=== PATIENT | female | born 2000 | race Caucasian/White ===

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

== ENCOUNTER 2021-02-16 18:40 | Inpatient (IN) | payer MEDICAID, SELFPAY ==
[2021-02-16 18:55] VITALS: BP 144/83; PULSE 90; RESP 16; TEMP 36.2; O2SAT 100; BMI 47.9
[2021-02-16 19:48] LABS: Basophils % 0.1 %; Eosinophils # 0.1 10^3/uL (0.0-0.8); Eosinophils % 1.1 %; Hematocrit 44.4 % (37.0-47.0); Lymphocytes # 2.4 10^3/uL (1.5-6.5); Lymphocytes % 28.8 %; Mean Corpuscular HGB Conc 31.5 g/dL (30.0-36.0); Mean Corpuscular Hemoglobin 26.9 pg (28.0-34.0); Mean Corpuscular Volume 85.4 fl (81-99); Mean Platelet Volume 10.3 fL (7.4-10.4); Monocytes # 0.4 10^3/uL (0.2-0.9); Monocytes % 5.3 %; Neutrophils # 5.34 10^3/uL (1.8-8.0); Neutrophils % 64.6 %; Nucleated Red Blood Cells % 0 %; Platelet Count 359 10^3/cmm (130-400); Red Cell Distribution Width 13.4 % (12.1-15.1); White Blood Count 8.3 10^3/uL (4.5-13.0)
[2021-02-16 20:03] LABS: Amphetamines Screen Urine Negative (Negative); Barbiturates Screen Urine Negative (Negative); Benzodiazepines Screen Urine Negative (Negative); Cocaine Screen Urine Negative (Negative); Opiate Screen Urine Negative (Negative); PCP Screen Urine Negative (Negative); THC Screen Urine Positive (Negative)
--- NOTE | 2021-02-16 20:03 | W.ED.GENADLT ---
HPI - General Adult General: Chief complaint: Psychiatric Symptoms Stated complaint: SI Time Seen by Provider: 02/16/21 19:15 History of Present Illness: HPI narrative: HPI: [20]yo patient w/ hx of depression BIBA for suicidal ideation per mom. On arrival, the patient is AAOx3 and cooperative with my evaluation. No focal complaints of chest pain, shortness of breath, palpitations, N/V, focal GI/ complaints. +SI. No complaints of hallucinations. Onset: chronic Duration: ongoing Location: home Severity: severe Review of Systems Narrative: Constitutional: No fever, no chills. HEENT: No vision changes CV: No chest pain, no palpitations PULM: No productive cough, no dyspnea. GI: No abdominal pain, no N/V/D. : No dysuria MSKEL: No muscle pain SKIN: No new rashes, no lesions. NEURO: No headache, no focal weakness. HEME: No visible bruises PSYCH: Normal mood PFSH ED PFSH: Medical History (Updated 02/16/21 @ 19:17 by Lilly Robles MD) Type 2 diabetes mellitus without complication Social History Smoking and tobacco status: never smoked Female Reproductive History: Date of last menstrual period: 02/16/21 Physical Exam Narrative: EXAM NARRATIVE: Head: Atraumatic Eyes: PERRL, conjunctiva without injection, eyes tracking ENT: Mucous membrane moist NECK: Supple without lymphadenopathy LUNGS: LCTAB CV: RRR ABDOMEN: Soft, nontender EXTREMITY: Normal ROM SKIN: No rash or erythema NEURO: Awake and alert. No focal weakness PSYCH: Cooperative mood and affect. Course Vital Signs: Vital signs: Vital Signs Temperature 97.1 F L 02/16/21 18:55 Pulse Rate 90 02/16/21 18:55 Respiratory Rate 16 02/16/21 18:55 Blood Pressure 144/83 02/16/21 18:55 Pulse Oximetry 100 02/16/21 18:55 MDM - General Adult MDM Narrative: Medical decision making narrative: [20]yo patient w/ hx of depression presenting for SI. HDS, exam within normal limit Thoughts are linear and organized, and the patient has no AH/VH, or HI. Clinically the patient displays no overt toxidrome; they are well appearing, with low suspicion for toxic ingestion given history and exam. Symptoms unlikely 2/2 anemia, hypothyroidism, infection, or ICH. Workup: CBC, CMP, Lipase, salicylate/tylenol, UDS Lab findings: wnl [8:30pm] On reassessment, labs and workup wnl. Patient is hemodynamically stable with no acute medical complaints. Case discussed with psychiatric provider Dr. Desouza at [facility] psych inpatient with recommendation for admission Disposition: Psych Lab Data: Labs: Lab Results 02/16/21 02/16/21 02/16/21 19:39 19:40 19:40 WBC 8.3 10^3/uL 10^3/ uL (4.5-13.0) RBC 5.20 10^6/uL 10^6 /uL (4.1-5.3) Hgb 14.0 g/dL g/dL (11.5-15.3) Hct 44.4 % % (37.0-47.0) MCV 85.4 fl fl (81-99) MCH 26.9 pg L pg (28.0-34.0) MCHC 31.5 g/dL g/dL (30.0-36.0) RDW 13.4 % % (12.1-15.1) Plt Count 359 10^3/cmm 10^3 /cmm (130-400) MPV 10.3 fL fL (7.4-10.4) Neut % (Auto) 64.6 % % Lymph % (Auto) 28.8 % % [place] % (Auto) 5.3 % % Eos % (Auto) 1.1 % % Baso % (Auto) 0.1 % % Neut # (Auto) 5.34 10^3/uL 10^3 /uL (1.8-8.0) Lymph # (Auto) 2.4 10^3/uL 10^3/ uL (1.5-6.5) [place] # (Auto) 0.4 10^3/uL 10^3/ uL (0.2-0.9) Eos # (Auto) 0.1 10^3/uL 10^3/ uL (0.0-0.8) Baso # (Auto) 0.0 10^3/uL 10^3/ uL (0.0-0.1) Nucleated RBC % (a uto) 0 % % Nucleated RBCs # 0.0 /100WBC /100W BC Sodium 137 mmol/L mmol/L (136-145) Potassium 3.9 mmol/L mmol/L (3.5-5.1) Chloride 101 mmol/L mmol/L (98-107) Carbon Dioxide 20 mmol/L L mmol/ L (22-29) Anion Gap 19.9 H (5-19) BUN 8 mg/dL mg/dL (6-20) Creatinine 0.6 mg/dL mg/dL (0.5-0.9) GFR Calculation 127.5 mL/min mL/m in (90-130) Glucose 177 mg/dL H mg/dL (65-115) Calculated Osmolal ity 287 mOsm/kg mOsm/ kg (285-295) Calcium 9.0 mg/dL mg/dL (8.5-10.5) Ser , Jessica i-Qnt 0.50 mIU/mL mIU/m L Salicylates < 0.3 mg/dL L mg/ dL (3-10) Urine Opiates Scre en Negative ng/mL ng /mL (Negative) Acetaminophen < 5.0 ug/mL L ug/ mL (10-30) Ur Barbiturates Sc reen Negative ng/mL ng /mL (Negative) Ur Phencyclidine S crn Negative ng/mL ng /mL (Negative) Ur Amphetamines Sc reen Negative ng/mL ng /mL (Negative) U Benzodiazepines Scrn Negative ng/mL ng /mL (Negative) Urine Cocaine Scre en Negative ng/mL ng /mL (Negative) U Marijuana (THC) Screen Positive ng/mL H ng/mL (Negative) Discharge Plan Discharge Patient Disposition: Admitted As Inpatient Clinical Impression: Depression Condition: Stable Discharge Diet: Advance as tolerated Discharge Activity: Resume usual activity Coding Level of Care Code ED Cnc Supervisor for Fatou Gant
[2021-02-16 20:51] LABS: Anion Gap 19.9 (5-19); Blood Urea Nitrogen 8 mg/dL (6-20); Carbon Dioxide 20 mmol/L (22-29); Chloride 101 mmol/L (98-107); Glomerular Filtration Rate 127.5 mL/min (90-130); Glucose 177 mg/dL (65-115); Osmolality Calculated 287 mOsm/kg (285-295); Potassium 3.9 mmol/L (3.5-5.1); Sodium 137 mmol/L (136-145)
[2021-02-16 20:58] LABS: Acetaminophen < 5.0 ug/mL (10-30); Salicylate < 0.3 mg/dL (3-10)
[2021-02-16 22:36] VITALS: BP 144/78; PULSE 82; RESP 18; TEMP 36.7; O2SAT 98
[2021-02-17 06:00] VITALS: BP 126/81; PULSE 70; RESP 15; O2SAT 96
--- NOTE | 2021-02-17 06:28 | P.NPUHP_ITS ---
Providers/Chief Complaint Admitting Physician: Phong Desouza MD Primary Care Provider: Jose Alberto Mishra Chief Complaint: SI HPI NPU History of Present Illness Rhonda Davis is a 20 year old female admitted through the emergency department with the following report: Chief complaint: Psychiatric Symptoms Stated complaint: SI Time Seen by Provider: 02/16/21 19:15 History of Present Illness: HPI narrative: HPI: [20]yo patient w/ hx of depression BIBA for suicidal ideation per mom. On arrival, the patient is AAOx3 and cooperative with my evaluation. No focal complaints of chest pain, shortness of breath, palpitations, N/V, focal GI/ complaints. +SI. No complaints of hallucinations. Onset: chronic Duration: ongoing Location: home Severity: severe She was admitted to the neuropsychiatry unit for definitive treatment of these issues. She said that she has always had some anxiety, low self-esteem and depression. She is always been self-conscious. She says that she does not care what people think but she does not want to appear to be different than others. She has never had treatment. She has been working at [employer] since he was 16. 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 She was doing well with that until her grandmother and her brother both in the same 3-day. She had difficulty dealing with that and demoted herself. She has worked in a variety of positions, wherever they need her since that time. Her depression is gradually increased so that she has been having thoughts of wanting to kill herself for the last 2 weeks. She has a full spectrum of symptoms of depression. She has low mood, low energy, low self-esteem, low motivation, poor concentration and poor sleep. She has always needed to take something to help her sleep. She takes 1 or 2 Benadryl along with 5 or 10 mg of melatonin and generally smokes marijuana at bedtime. If she does not do that then she takes 1 or 2 hours to fall asleep. She took trazodone 50 mg last night but it did not do much for her sleep. She agreed to increase to 100 mg. She has many symptoms of anxiety. She said that she is always nervous. If she put something down it has to be lined up right. Her close have to be folded and hung up a certain way and color-coordinated. If she says a word she spells in her head. She says that her mother has bipolar disorder and depression. She 3 siblings that she does not think have depression or anxiety. She has never known much about her father. The doctor in the emergency room was thinking about releasing her but mother said that she was very concerned about her and did not think it was safe to send her home. The patient is insisting on leaving today. The mother is going to come and fill out an affidavit. Meds NPU Home Medications Medication Instructions Recorded Confirmed Last Taken Type No Known Home Medications 02/17/21 02/17/21 Unknown History Allergies Allergy/AdvReac Type Severity Reaction Status Date / Time Pertussis Vaccines Allergy unknown Verified 08/22/19 14:15 PFSH NPU PFSH: Medical History (Updated 02/17/21 @ 12:13 by Phong Desouza MD) Type 2 diabetes mellitus without complication Social History Smoking and tobacco status: never smoked Mental Status Exam MSE Comments: This is an obese 20-year-old female of about the stated age in no acute distress. She is dressed in hospital scrubs and was found in bed disheveled. psychomotor activity mildly decreased. Speech is at a regular rate and rhythm, normal volume, good articulation, not pressured. Alert, oriented X3 Attention and concentration appears to be intact. Memory is intact Mood is depressed. Affect is tearful especially when told that I thought that she should stay because she is not any better. Thought process is logical and goal-directed. Thought content: Denies auditory and visual hallucinations. No delusions or paranoia are noted. No current suicidal ideation, and no homicidal ideation. Fund of knowledge appears to be average. Insight and judgment appear to be fair. Impulse control is fair. Vitals/I&O/Wt Last Vital Signs Temp 98.1 F 02/16/21 22:36 Pulse 70 02/17/21 06:00 Resp 15 02/17/21 06:00 BP 126/81 02/17/21 06:00 Pulse Ox 96 02/17/21 06:00 Weight last 48 hrs Weight 142.882 kg Data NPU : 02/16/21 19:40 02/16/21 19:40 A&P Assessment and plan (1) Major depressive disorder, severe: Status: Acute (2) Type 2 diabetes mellitus without complication: Status: Acute (3) Anxiety disorder: Status: Acute Additional A&P Information This is a 20-year old single female who reports some lifelong anxiety and depression but no prior treatment. She has been significantly worse for the last 6 months and has had suicidal ideations for the last 2 weeks. Plan: 1. We will start Prozac 20 mg and trazodone at bedtime. 2. Continue every 15 minute checks for safety. 3. Encourage individual, group and milieu therapies. 4. Encourage sober living treatment after discharge at the highest level of care to which she is willing to commit. 5. We will monitor for safety for herself in the community prior to discharge. Involuntary Hold Information 96 Hour Hold: 96 Hour Involuntary Admission: No Attestations NPU Medical Necessity Statement*: Inpatient hospitalization is medically necessary and the clinically appropriate intervention at this time. We will initiate medications and make changes as indicated. She will be in the hospital for over 2 midnights. Likely length of stay 4-6 days Coding Level of Care Code Acute Link Knitting Machine Operator for Fatou Gant Diagnoses Major depressive disorder, severe F32.2 Type 2 diabetes mellitus without complication E11.9 Anxiety disorder F41.9
[2021-02-17 07:01] LABS: Glucose Point of Care 127 mg/dL (70-110)
--- NOTE | 2021-02-17 09:38 | PC.OT ---
OT EVALUATION ATTEMPTED; PATIENT WAS VISITING WITH DOCTOR AT FIRST ATTEMPT AND CRYING WHILE ON THE PHONE AT THE SECOND ATTEMPT.
[2021-02-17] MEDS: hyDROXYzine 25 mg Capsule 50 MG PO (10:11)
[2021-02-17] MEDS: nicotine 21 mg Patch 1 PATCH TRANSDERMA (10:11)
[2021-02-17 11:24] LABS: Glucose Point of Care 204 mg/dL (70-110)
--- NOTE | 2021-02-17 13:19 | NPU.GN ---
[facility] Group Topic:Depression Bingo General Mood of Group Rhonda did not attend group this morning. Brittany slept most of the day.
[2021-02-17] MEDS: fluoxetine 20 mg Capsule PO (13:23)
[2021-02-17 14:00] VITALS: BP 125/75; PULSE 79; RESP 16; TEMP 36.8; O2SAT 99
[2021-02-17 16:53] LABS: Glucose Point of Care 142 mg/dL (70-110)
[2021-02-17] MEDS: trazodone 100 mg Tablet PO (21:17)
[2021-02-17 21:39] LABS: Glucose Point of Care 150 mg/dL (70-110)
[2021-02-17 22:00] VITALS: RESP 16
[2021-02-18 06:00] VITALS: BP 130/82; PULSE 71; RESP 16; O2SAT 97
[2021-02-18 07:01] LABS: Glucose Point of Care 139 mg/dL (70-110)
[2021-02-18] MEDS: fluoxetine 20 mg Capsule PO (09:15)
[2021-02-18 11:28] LABS: Glucose Point of Care 215 mg/dL (70-110)
--- NOTE | 2021-02-18 13:09 | W.PM.NPUPNS ---
Subjective NPU Subjective: Interval history: He was found in bed after lunch. She says that she is doing better. She had a good visit with her mother yesterday. She says that she has had a lot of time to think and that has been helpful. She is thinking about getting a different job. 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 She was reminded that Prozac probably needs to get up to 60 or 80 mg before it will be helpful for her anxiety. She slept better last night with the trazodone 100 mg. She was a little groggy this morning. He was told that if she only needed one half when she got home that would be fine. Combining with melatonin might help. She should always take as little as possible of sleeping medications but still get a good night sleep. The importance of ongoing outpatient treatment was again emphasized. Mental Status Exam MSE Comments: This is an obese 20-year-old female of about the stated age in no acute distress. She is dressed in hospital scrubs and was found in bed disheveled. psychomotor activity normal. Speech is at a regular rate and rhythm, normal volume, good articulation, not pressured. Alert, oriented X3 Attention and concentration appears to be intact. Memory is intact Mood is depressed. Affect is mildly dysphoric. Significantly better than yesterday.. Thought process is logical and goal-directed. Thought content: Denies auditory and visual hallucinations. No delusions or paranoia are noted. No current suicidal ideation, and no homicidal ideation. Fund of knowledge appears to be average. Insight and judgment appear to be fair. Impulse control is fair. Cognition: Level of Consciousness: Awake, Alert and Appropriate Patient Cognition Impaired: No Ability to Follow Directions: Good Patient Orientation (long list): Person, Place and Time Comprehension Ability: No Impairment Hallucination Type: None Delusion Description: Not Present Thought Process: Appropriate Affect: Affect Description: Depressed and Sad Behavior: Patient Behavior: Withdrawn Speech Pattern: Clear Vitals/I&O/Wt Last Vital Signs Temp 98.2 F 02/17/21 14:00 Pulse 71 02/18/21 06:00 Resp 16 02/18/21 06:00 BP 130/82 02/18/21 06:00 Pulse Ox 97 02/18/21 06:00 Weight last 48 hrs Weight 142.882 kg Data NPU : 02/16/21 19:40 02/16/21 19:40 A&P Assessment and plan (1) Major depressive disorder, severe: Status: Acute (2) Type 2 diabetes mellitus without complication: Status: Acute (3) Anxiety disorder: Status: Acute Additional A&P Information This is a 20-year old single female who reports some lifelong anxiety and depression but no prior treatment. She has been significantly worse for the last 6 months and has had suicidal ideations for the last 2 weeks. Plan: 1. We will start Prozac 20 mg and trazodone 100 mg at bedtime. 2. Continue every 15 minute checks for safety. 3. Encourage individual, group and milieu therapies. 4. Encourage sober living treatment after discharge at the highest level of care to which she is willing to commit. 5. We will monitor for safety for herself in the community prior to discharge. Involuntary Hold Information 96 Hour Hold: 96 Hour Involuntary Admission: No Attestations NPU Medical Necessity Statement*: Inpatient hospitalization is medically necessary and the clinically appropriate intervention at this time. We will initiate medications and make changes as indicated. Coding Level of Care Code Acute Refrigerator Assembler for Fatou Gant Diagnoses Major depressive disorder, severe F32.2 Type 2 diabetes mellitus without complication E11.9 Anxiety disorder F41.9
[2021-02-18] MEDS: nicotine 2 mg Gum BUCCAL (13:11)
--- NOTE | 2021-02-18 13:18 | NPU.GN ---
[facility] Group Topic:Group Topic:Whine Barrel Activity General Mood of Group: Rhonda did attend group this morning. She participated but was a bit timid. This data analyst report writer aided client in completing the [facility] new client packet for services.
--- NOTE | 2021-02-18 13:20 | PC.SOCIAL ---
This commercial underwriter aided this client to complete the [facility] New Patient packet today for services .
[2021-02-18 13:57] VITALS: BP 142/82; PULSE 77; RESP 16; TEMP 36.6; O2SAT 98
[2021-02-18 16:15] LABS: Glucose Point of Care 146 mg/dL (70-110)
[2021-02-18] MEDS: trazodone 100 mg Tablet PO (20:53)
--- NOTE | 2021-02-18 21:00 | PC.NURSE ---
Patient blood sugar 150. Per sliding scale pt is to have 2 Units Lispro. Medication drawn up and taken to pt to administer. Pt replied, I don't take insulin, I only take Metformin. This Nurse explained insulin and sliding scale to patient. Patient chose to decline the Insulin at this time.
[2021-02-18 21:31] LABS: Glucose Point of Care 150 mg/dL (70-110)
[2021-02-18 22:00] VITALS: RESP 16
[2021-02-19 06:00] VITALS: RESP 16
[2021-02-19 07:34] LABS: Glucose Point of Care 131 mg/dL (70-110)
[2021-02-19] MEDS: fluoxetine 20 mg Capsule PO (09:02)
[2021-02-19 11:24] LABS: Glucose Point of Care 181 mg/dL (70-110)
[2021-02-19] MEDS: nicotine 21 mg Patch 1 PATCH TRANSDERMA (11:52)
[2021-02-19 14:00] VITALS: BP 164/92; PULSE 90; RESP 17; TEMP 36.9; O2SAT 98
[2021-02-19 16:36] LABS: Glucose Point of Care 150 mg/dL (70-110)
--- NOTE | 2021-02-19 16:41 | P.NPUPN_ITS ---
Subjective NPU Subjective: Interval history: Rhonda presents today reporting that she is starting to feel better. We discussed the risk benefits and alternatives of scheduling the Prozac to be increased to 40 mg in the morning and she understood and agreed proceed as is documented in this note. We discussed speaking with mom and the plan for discharge earlier rather than later tomorrow with a plan for her to get prepared for work this weekend. She otherwise denies any issues and reports optimism that she can get things back on track in her life. Mental Status Exam MSE Comments: This is a morbidly obese young white female in hospital scrubs with adequate grooming but decreased eye contact. No abnormal movements except for mild psychomotor retardation. Cooperative with exam in mild distress. Speech was slightly decreased volume normal rate. Mood described as better, affect slightly subdued. Thought process organized. Thought content: Patient denied suicidal homicidal ideation, there were no delusions reported or noted, she denied any auditory or visual hallucinations. Attention concentration appeared intact and memory appeared reliable but none were formally tested. He is alert and oriented x3. Insight and judgment are improving and impulse control appears fair. Vitals/I&O/Wt Last Vital Signs Temp 97.9 F 02/19/21 21:28 Pulse 91 02/19/21 21:28 Resp 18 02/19/21 21:28 BP 133/71 02/19/21 21:28 Pulse Ox 97 02/19/21 21:28 Data NPU : 02/16/21 19:40 02/16/21 19:40 A&P Additional A&P Information (1) Major depressive disorder, severe: (2) Type 2 diabetes mellitus without complication: (3) Anxiety disorder: Additional A&P Information This is a 20-year old single female who reports some lifelong anxiety and depression but no prior treatment. She has been significantly worse for the last 6 months and has had suicidal ideations for the last 2 weeks. Plan: 1. Continue current medication except increase Prozac to 40 mg p.o. every morning in the morning. 2. Continue every 15 minute checks for safety. 3. Encourage individual, group and milieu therapies. 4. Encourage sober living treatment after discharge at the highest level of care to which she is willing to commit. 5. Plan for discharge in the morning. Involuntary Hold Information 96 Hour Hold: 96 Hour Involuntary Admission: No Attestations NPU Medical Necessity Statement*: Inpatient hospitalization is medically necessary and the clinically appropriate intervention at this time. We will initiate medications and make changes as indicated. Likely discharge tomorrow. Coding Level of Care Code Acute Appeals Writer for Fatou Gant
--- NOTE | 2021-02-19 19:13 | PC.NURSE ---
insulin Pt is scared to take insulin, talking to the doctor about putting her back on metformin.
[2021-02-19 20:55] LABS: Glucose Point of Care 130 mg/dL (70-110)
[2021-02-19] MEDS: trazodone 100 mg Tablet PO (21:02)
[2021-02-19 21:28] VITALS: BP 133/71; PULSE 91; RESP 18; TEMP 36.6; O2SAT 97
[2021-02-20 06:00] VITALS: BP 101/49; PULSE 79; RESP 17; TEMP 36.6; O2SAT 98
--- NOTE | 2021-02-20 06:10 | W.PM.NPUDCS ---
Diagnoses at Discharge Discharge Diagnosis (1) Major depressive disorder, severe: Status: Acute (2) Type 2 diabetes mellitus without complication: Status: Acute (3) Anxiety disorder: Status: Acute Reason for Visit Reason for Visit: SI Brief History: History of Present Illness Rhonda Davis is a 20 year old female admitted through the emergency department with the following report: Chief complaint: Psychiatric Symptoms Stated complaint: SI Time Seen by Provider: 02/16/21 19:15 History of Present Illness: HPI narrative: HPI: [20]yo patient w/ hx of depression BIBA for suicidal ideation per mom. On arrival, the patient is AAOx3 and cooperative with my evaluation. No focal complaints of chest pain, shortness of breath, palpitations, N/V, focal GI/ complaints. +SI. No complaints of hallucinations. Onset: chronic Duration: ongoing Location: home Severity: severe She was admitted to the neuropsychiatry unit for definitive treatment of these issues. She said that she has always had some anxiety, low self-esteem and depression. She is always been self-conscious. She says that she does not care what people think but she does not want to appear to be different than others. She has never had treatment. She has been working at [employer] since he was 16. 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 She was doing well with that until her grandmother and her brother both in the same 3-day. She had difficulty dealing with that and demoted herself. She has worked in a variety of positions, wherever they need her since that time. Her depression is gradually increased so that she has been having thoughts of wanting to kill herself for the last 2 weeks. She has a full spectrum of symptoms of depression. She has low mood, low energy, low self-esteem, low motivation, poor concentration and poor sleep. She has always needed to take something to help her sleep. She takes 1 or 2 Benadryl along with 5 or 10 mg of melatonin and generally smokes marijuana at bedtime. If she does not do that then she takes 1 or 2 hours to fall asleep. She took trazodone 50 mg last night but it did not do much for her sleep. She agreed to increase to 100 mg. She has many symptoms of anxiety. She said that she is always nervous. If she put something down it has to be lined up right. Her close have to be folded and hung up a certain way and color-coordinated. If she says a word she spells in her head. She says that her mother has bipolar disorder and depression. She 3 siblings that she does not think have depression or anxiety. She has never known much about her father. The doctor in the emergency room was thinking about releasing her but mother said that she was very concerned about her and did not think it was safe to send her home. The patient is insisting on leaving today. The mother is going to come and fill out an affidavit. Hospital Course Hospital Course She quickly acclimated to the individual, group milieu therapies provided. With the bags of OCD she agreed to initiating Prozac with a goal of getting up to likely 60 to 80 mg if not more tolerated. Ultimately she started 20 mg and I will increase for milligram prior to discharge. She had significant social support with her mother and ultimately had modest improvement and was able to contract safety prior to discharge. During the hospitalization, patient had routine laboratory studies which were within normal limits except for few outliers. Additionally there was a general medical evaluation which was also within normal limits and revealed no new acute processes. Discharge Summary: At the time of discharge, psychosis and lethality were denied. Mood and anxiety were well managed. Patient endorsed a plan to avoid all drugs of abuse and follow-up with the aftercare recommendations of the treatment team. Patient was evaluated and deemed to be absent credible lethality, and had achieved the maximum benefit from an inpatient hospitalization, so was discharged. Involuntary Hold Information 96 Hour Hold: 96 Hour Involuntary Admission: No Mental Status Exam MSE Comments: This is a morbidly obese young white female in hospital scrubs with adequate grooming but decreased eye contact. No abnormal movements except for mild psychomotor retardation. Cooperative with exam in no acute distress. Speech was more normal rate and volume. Mood described as better, affect congruent. Thought process organized. Thought content: Patient denied suicidal homicidal ideation, there were no delusions reported or noted, she denied any auditory or visual hallucinations. Attention concentration appeared intact and memory appeared reliable but none were formally tested. He is alert and oriented x3. Insight and judgment are improving and impulse control appears fair. Discharge Data Data Completed and Pending: Labs from last 24 hours 02/19/21 02/19/21 02/19/21 20:47 16:32 11:19 POC Glucose 130 H 150 H 181 H 12/02/21 07:31 POC Glucose 131 H Vitals: Last Vital Signs Temp 97.9 F 02/19/21 21:28 Pulse 91 02/19/21 21:28 Resp 18 02/19/21 21:28 BP 133/71 02/19/21 21:28 Pulse Ox 97 02/19/21 21:28 Discharge Plan Discharge Patient Disposition: Home Condition: Stable Prescriptions: No Action fluoxetine 20 mg capsule 40 mg PO DAILY 30 Days Qty: 60 RF: 1 trazodone 100 mg tablet 100 mg PO BEDTIME 30 Days Qty: 30 RF: 1 Discharge Orders: Discharge Order (Routine); Ordered 02/20/21 Ordered By: James Gold Referrals: [facility] [Outside] - 02/24/21 11:30 am (Initial assessment with Mone Ghosh on 02/24/21 @ 12:00pm with an 11:30am check in. ) Jose Alberto Mishra FNP [Primary Care Provider] - Discharge Diet: Advance as tolerated and Diabetic Discharge Activity: Resume usual activity Patient Instructions: Opioid Safety Discharge Attestations NPU Time Spent in Discharge Care*: less than 30 min Specific Discharge Activities: Specific discharge activities: educating patient, discussing with correctional case manager/social workers/dc planners, documenting/other paperwork and evaluating patient/reviewing data Coding Level of Care Code Acute Chg FW DC note Diagnoses Major depressive disorder, severe F32.2 Type 2 diabetes mellitus without complication E11.9 Anxiety disorder F41.9
[2021-02-20 07:39] VITALS: BP 101/49; PULSE 79; RESP 17; TEMP 36.6; O2SAT 98
[2021-02-20] MEDS: fluoxetine 20 mg Capsule 40 MG PO (08:46)
== END 2021-02-20 09:41 | disposition home or self-care (01) | DRG 885 ==
LOC: ER 19:28 → NP 02-17 07:38
PROVIDERS: Admitting Provider Psychiatry & Neurology Psychiatry; Emergency Provider Emergency Medicine; Family Provider Nurse Practitioner Family; PCP Nurse Practitioner Family; Visit Provider Psychiatry & Neurology Psychiatry
DX: F32.2 Major depressive disorder, single episode, severe without psychotic features (principal); R45.851 Suicidal ideations; F41.9 Anxiety disorder, unspecified; F12.90 Cannabis use, unspecified, uncomplicated; E11.9 Type 2 diabetes mellitus without complications; F42.9 Obsessive-compulsive disorder, unspecified; Z81.8 Family history of other mental and behavioral disorders
CPT/HCPCS: 36416; 80048; 80306; 80307; 82962; 84702; 85025; 96372; 97150; 97165; 99285; J1815

== ENCOUNTER → 2021-03-03 11:36 | Outpatient (BNVA) | payer MEDICAID, SELFPAY | PROVIDERS: Family Provider Nurse Practitioner Family; PCP Nurse Practitioner Family; Visit Provider Nurse Practitioner | DX: F41.1 Generalized anxiety disorder (principal); F32.0 Major depressive disorder, single episode, mild; F17.200 Nicotine dependence, unspecified, uncomplicated; Z72.0 Tobacco use | CPT/HCPCS: 99205 ==

== ENCOUNTER → 2021-05-06 13:19 | Outpatient (BNVA) | payer MEDICAID, SELFPAY | PROVIDERS: Family Provider Nurse Practitioner Family; PCP Nurse Practitioner Family; Visit Provider Nurse Practitioner | DX: F41.1 Generalized anxiety disorder (principal); F32.0 Major depressive disorder, single episode, mild | CPT/HCPCS: 99214 ==

== ENCOUNTER → 2021-07-28 13:26 | Outpatient (BNVA) | payer MEDICAID, SELFPAY | PROVIDERS: Family Provider Nurse Practitioner Family; PCP Nurse Practitioner Family; Visit Provider Nurse Practitioner | DX: F41.1 Generalized anxiety disorder (principal); F32.0 Major depressive disorder, single episode, mild; F12.20 Cannabis dependence, uncomplicated | CPT/HCPCS: 99214 ==

== ENCOUNTER → 2022-02-18 17:41 | Outpatient (BNVA) | payer MEDICAID, SELFPAY | PROVIDERS: Family Provider Nurse Practitioner Family; PCP Nurse Practitioner Family; Visit Provider Emergency Medicine | DX: J11.1 Influenza due to unidentified influenza virus with other respiratory manifestations (principal) | CPT/HCPCS: 87400 ==

== ENCOUNTER → 2022-10-05 10:35 | Outpatient (BNVA) | payer MEDICAID, SELFPAY | PROVIDERS: PCP Registered Nurse; Referring Provider Registered Nurse; Visit Provider Obstetrics & Gynecology | DX: Z12.4 Encounter for screening for malignant neoplasm of cervix (principal) | CPT/HCPCS: 88175 ==

== ENCOUNTER 2022-11-28 00:11 | Emergency (ER) | payer MEDICAID, SELFPAY ==
[2022-11-28 00:19] VITALS: BP 156/92; PULSE 101; RESP 18; TEMP 36.6; O2SAT 97; BMI 44.6
[2022-11-28 01:06] LABS: Basophils % 0.3 %; Eosinophils # 0.1 10^3/uL (0.0-0.8); Lymphocytes # 2.4 10^3/uL (0.8-4.8); Lymphocytes % 32.5 %; Mean Corpuscular HGB Conc 32.9 g/dL (30-55); Mean Corpuscular Hemoglobin 27.9 pg (27-33); Mean Platelet Volume 11.6 fL (7.4-10.4); Monocytes # 0.4 10^3/uL (0.2-0.9); Monocytes % 4.8 %; Neutrophils # 4.44 10^3/uL (1.8-7.7); Neutrophils % 61.1 %; Nucleated Red Blood Cells % 0 %; Platelet Count 230 10^3/cmm (157-399); Red Blood Count 4.94 10^6/uL (3.85-5.65); Red Cell Distribution Width 13.1 % (12.1-15.1); White Blood Count 7.26 10^3/uL (3.29-11.43)
[2022-11-28 01:25] LABS: Alanine Aminotransferase 54 U/L (0-33); Albumin Level 4.1 g/dL (3.5-5.2); Alkaline Phosphatase 85 U/L (35-105); Anion Gap 14.4 (5-19); Aspartate Amino Transferase 26 U/L (0-32); Blood Urea Nitrogen 11 mg/dL (6-20); Calcium 9.3 mg/dL (8.5-10.5); Carbon Dioxide 25 mmol/L (22-29); Chloride 99 mmol/L (98-107); Globulin 3.3 g/dL (1.3-4.6); Glomerular Filtration Rate 105.6 mL/min (90-130); Glucose 488 mg/dL (65-115); Osmolality Calculated 299 mOsm/kg (285-295); Potassium 4.4 mmol/L (3.5-5.1); Sodium 134 mmol/L (136-145); Total Bilirubin 0.3 mg/dL (0.15-1.2); Total Protein 7.4 g/dL (6.6-8.7)
[2022-11-28 03:12] VITALS: BP 146/72; PULSE 89; RESP 17; O2SAT 100
[2022-11-28] MEDS: ketorolac 30 mg/mL INJ IVP (04:27)
[2022-11-28] MEDS: ondansetron 2 mg/ML SDV 2 mL 4 MG IVP (04:27)
[2022-11-28 04:30] VITALS: BP 127/91; PULSE 92; RESP 16; O2SAT 100
[2022-11-28] MEDS: medroxyprogesterone 2.5 mg Tablet 10 MG PO (04:32)
[2022-11-28 04:51] VITALS: BP 127/91; PULSE 91; RESP 16; O2SAT 100
--- NOTE | 2022-11-28 05:55 | ED_ITS ---
HPI - Female Genitourinary General: Chief complaint: Vaginal Bleeding Stated complaint: vaginal bleeding, white discharge, back pain Time Seen by Provider: 11/28/22 03:57 History of Present Illness: 21-year-old female with at least a 3-month history of dysfunctional uterine bleeding. For the last 3 days, she has had passage of clots and increased cramping. She is not . She has received one injection of depo provera about three months ago. She had previously been treated with tranexamic acid without improvement. She has not had a pelvic ultrasound or further work up. No fever. Associated symptoms: Reports abdominal pain and nausea Review of Systems Const: Denies: fever(s) or chills Card: Denies: chest pain or palpitations Resp: Denies: dyspnea or productive cough GI: Reports: abdominal pain and nausea; Denies: vomiting or diarrhea : Denies: flank pain, difficulty voiding or dysuria Musc: Reports: back pain PFS ED PFSH: Medical History (Updated 11/28/22 @ 04:32 by Grupo Quiroz DO) Cannabis dependence, uncomplicated Generalized anxiety disorder Major depressive disorder, single episode, mild Nicotine use disorder Nicotine vapor product user Type 2 diabetes mellitus without complication Family History Family/Other No problems noted. Father Hyperlipidemia Mother Hypertension Diabetes Denies family history of Colon cancer Ovarian cancer Heart disease Breast cancer Uterine cancer Thyroid disease Stroke Social History Smoking and tobacco status: never smoked Physical Exam Const: COMMON NORMALS: no acute distress GENERAL APPEARANCE: cooperative; not ill appearing and not frail appearing HENMT: COMMON NORMALS: normocephalic, atraumatic and Normal external nose present HEAD & SCALP: normocephalic and atraumatic FACE & SINUS: normal facial exam and face symmetric NOSE: Normal external nose present Eye: COMMON NORMALS: Equal, round and reactive pupils present and EOMs intact bilaterally PUPIL: Yes Equal, round and reactive pupils present Neck/C-Spine: GENERAL: Yes trachea midline Chest: CHEST: Yes Symmetrical chest wall rise Resp: COMMON NORMALS: normal respiratory effort, No retractions, No use of accessory muscles and clear to auscultation bilaterally AUSCULTATION: clear to auscultation bilaterally Cardio: COMMON NORMALS: regular rate and regular rhythm RATE: regular rate RHYTHM: regular rhythm GI: COMMON NORMALS: Normal to inspection, nondistended, normoactive bowel sounds present Extremity: COMMON NORMALS: no pedal edema Neuro: GEOVANNY COMA SCALE: document GCS findings Geovanny coma scale eye opening: Spontaneous Geovanny coma scale verbal response: Orientated Geovanny coma scale motor response: Obey commands Hernando coma scale total score: 15 SENSORY EXAM: Yes extremities (intact) Psych: COMMON NORMALS: speech normal SPEECH: Yes normal speech Skin: COMMON NORMALS: no rashes or lesions noted GENERAL SKIN EXAM: no rashes or lesions noted Course Vital Signs: Vital signs: Vital Signs Temperature 98 F 11/28/22 00:19 Pulse Rate 91 11/28/22 04:51 Respiratory Rate 16 11/28/22 04:51 Blood Pressure 127/91 11/28/22 04:51 Pulse Oximetry 100 11/28/22 04:51 Oxygen Delivery Me thod Room Air 11/28/22 04:30 MDM - Female Medical Decision Making Hemoglobin is 14. Patient is afebrile. Vitals are normal. No bleeding here. She will be given a 5-day course of Provera, withdrawal bleed to follow. Outpatient ultrasound. Women's health follow-up. Lab Data 11/28/22 00:43 11/28/22 00:43 Laboratory Results WBC 7.26 10^3/uL (3.29-11.43) 11/28/22 00:43 RBC 4.94 10^6/uL (3.85-5.65) 11/28/22 00:43 Hgb 13.80 g/dL (11.27-16.99) 11/28/22 00:43 Hct 42.0 % (36-47) 11/28/22 00:43 MCV 85.0 fl (85-98) 11/28/22 00:43 MCH 27.9 pg (27-33) 11/28/22 00:43 MCHC 32.9 g/dL (30-55) 11/28/22 00:43 RDW 13.1 % (12.1-15.1) 11/28/22 00:43 Plt Count 230 10^3/cmm (157-399) 11/28/22 00:43 MPV 11.6 fL (7.4-10.4) H 11/28/22 00:43 Neut % (Auto) 61.1 % 11/28/22 00:43 Lymph % (Auto) 32.5 % 11/28/22 00:43 Nuckolls % (Auto) 4.8 % 11/28/22 00:43 Eos % (Auto) 1.0 % 11/28/22 00:43 Baso % (Auto) 0.3 % 11/28/22 00:43 Neut # (Auto) 4.44 10^3/uL (1.8-7.7) 11/28/22 00:43 Lymph # (Auto) 2.4 10^3/uL (0.8-4.8) 11/28/22 00:43 Nuckolls # (Auto) 0.4 10^3/uL (0.2-0.9) 11/28/22 00:43 Eos # (Auto) 0.1 10^3/uL (0.0-0.8) 11/28/22 00:43 Baso # (Auto) 0.0 10^3/uL (0.0-0.1) 11/28/22 00:43 Nucleated RBC % (auto) 0 % 11/28/22 00:43 Nucleated RBCs # 0.0 /100WBC 11/28/22 00:43 Sodium 134 mmol/L (136-145) L 11/28/22 00:43 Potassium 4.4 mmol/L (3.5-5.1) 11/28/22 00:43 Chloride 99 mmol/L (98-107) 11/28/22 00:43 Carbon Dioxide 25 mmol/L (22-29) 11/28/22 00:43 Anion Gap 14.4 (5-19) 11/28/22 00:43 BUN 11 mg/dL (6-20) 11/28/22 00:43 Creatinine 0.7 mg/dL (0.5-0.9) 11/28/22 00:43 GFR Calculation 105.6 mL/min (90-130) 11/28/22 00:43 Glucose 488 mg/dL (65-115) H 11/28/22 00:43 Calculated Osmolality 299 mOsm/kg (285-295) H 11/28/22 00:43 Calcium 9.3 mg/dL (8.5-10.5) 11/28/22 00:43 Total Bilirubin 0.3 mg/dL (0.15-1.2) 11/28/22 00:43 AST 26 U/L (0-32) 11/28/22 00:43 ALT 54 U/L (0-33) H 11/28/22 00:43 Alkaline Phosphatase 85 U/L (35-105) 11/28/22 00:43 Total Protein 7.4 g/dL (6.6-8.7) 11/28/22 00:43 Albumin 4.1 g/dL (3.5-5.2) 11/28/22 00:43 Globulin 3.3 g/dL (1.3-4.6) 11/28/22 00:43 Blood Type A Positive 11/28/22 00:43 Rho(D) Type Positive 11/28/22 00:43 Antibody Screen Negative 11/28/22 00:43 Discharge Plan Discharge Patient Disposition: Home Clinical Impression: Dysfunctional uterine bleeding Condition: Stable Prescriptions: New Provera 10 mg tablet 10 mg PO DAILY 5 Days Qty: 5 0RF Rx Instructions: begin day 21 of cycle ketorolac 10 mg tablet 10 mg PO TID PRN (Reason: pain) Qty: 10 0RF No Action minocycline 100 mg capsule 100 mg PO DAILY fluoxetine 20 mg capsule 40 mg PO DAILY 30 Days Qty: 60 2RF medroxyprogesterone 150 mg/mL syringe 150 mg IM ONCE Qty: 1 3RF omeprazole 40 mg capsule,delayed release(DR/EC) 40 mg PO DAILY loratadine 10 mg tablet 10 mg PO DAILY mirtazapine 7.5 mg tablet 7.5 mg PO DAILY Discharge Orders: Discharge ED (Routine); Ordered 11/28/22 Ordered By: Grupo Quiroz Referrals: Luke Emery MD [Physician] - 7-10 days Mellissa De La Paz [Primary Care Provider] - 1-3 days Patient Instructions: Abnormal (Dysfunctional) Uterine Bleeding (ED), Pain Management Activity Restrictions/Additional Instructions: Medication as directed. You may use the other medication as needed for pain. Heating pads can help as well. Return to the emergency department for brisk bleeding, soaking a pad an hour for more than 3 hours or more. Return also for fever greater than 100, increasing pain despite treatment, other concerns. Our case folder will contact you regarding a pelvic ultrasound to be scheduled. They will also contact you with a women's health appointment. Coding Level of Care Code ED [employer] Console Operator Track for Fatou Gant
--- NOTE | 2022-12-02 11:22 | DCPLANNER ---
manager of development had message to schedule a follow up appointment for patient with [facility] and an outpatient US. manager of development called [facility], a follow up appointment was scheduled for Tuesday, December 06, 2022 at 1:[address] Emery. Clinic will call patient with appointment information and will speak with patient about US.
== END 2022-11-28 04:52 | disposition home or self-care (01) ==
PROVIDERS: Emergency Provider Emergency Medicine; PCP Registered Nurse
DX: N93.8 Other specified abnormal uterine and vaginal bleeding (principal)
CPT/HCPCS: 36415; 80053; 85025; 86850; 86900; 96374; 96375; 99284; J1885; J2405

== ENCOUNTER → 2023-02-28 14:47 | Outpatient (BNVA) | payer MEDICAID, SELFPAY | PROVIDERS: PCP Registered Nurse; Visit Provider Obstetrics & Gynecology | DX: Z30.9 Encounter for contraceptive management, unspecified (principal); Z30.42 Encounter for surveillance of injectable contraceptive | CPT/HCPCS: 81025 ==

== ENCOUNTER → 2023-05-18 13:42 | Outpatient (BNVA) | payer MEDICAID, SELFPAY | PROVIDERS: PCP Registered Nurse; Visit Provider Obstetrics & Gynecology | DX: N92.6 Irregular menstruation, unspecified (principal); Z30.9 Encounter for contraceptive management, unspecified | CPT/HCPCS: 81025 ==